=== PATIENT | male | born 1995 | race Caucasian/White ===

== ENCOUNTER 2016-06-17 18:21 | Emergency (ER) | payer BC ==
--- NOTE | 2016-06-17 18:57 | UC ---
Eye Complaint HPI - HPI Summary HPI Summary: Bilat eye irritation and foul drainage since this morning. No recent contact lens use, denies FB sensation or grinding/welding. No light sensitivity. Pt is concerned about pink eye. - History of Current Complaint Stated Complaint: EYE COMPLAINT Time Seen by Provider: 06/17/16 18:45 Hx Obtained From: Patient Onset/Duration: Gradual Onset, Lasting Hours Timing: Constant Severity Initially: Mild Severity Currently: Mild Aggravating Factor(s): Nothing Alleviating Factor(s): Nothing Associated Signs And Symptoms: Positive: Drainage (Purulent) - Allergies/Home Medications Allergies/Adverse Reactions: Allergies Allergy/AdvReac Type Severity Reaction Status Date / Time No Known Allergies Allergy Verified 06/17/16 19:03 PMH/Surg Hx/FS Hx/Imm Hx Previously Healthy: Yes - Family History Known Family History: Positive: Other - no FHX of glaucoma or macular degeneration Negative: Cardiac Disease, Blood Disorder - Social History Occupation: Student Lives: Alone Alcohol Use: Weekly Substance Use Type: None Review of Systems Constitutional: Negative Skin: Negative Eyes: Drainage, Eye Redness ENT: Negative Respiratory: Negative Cardiovascular: Negative Gastrointestinal: Negative Genitourinary: Negative Motor: Negative Neurovascular: Negative Musculoskeletal: Negative Neurological: Negative Psychological: Negative All Other Systems Reviewed And Are Negative: Yes Physical Exam Triage Information Reviewed: Yes Appearance: Well-Appearing, No Pain Distress, Well-Nourished Eyes: Positive: Conjunctiva Inflamed - bilat, Discharge - white/yellow at bilat inner puncta ENT: Positive: Normal ENT inspection, Hearing grossly normal, Pharynx normal, Other: - bilat cerumen impaction Dental Exam: Normal Neck exam: Normal Neck: Positive: Supple, Nontender, No Lymphadenopathy Respiratory Exam: Normal Respiratory: Positive: Chest non-tender, Lungs clear, Normal breath sounds, No respiratory distress, No accessory muscle use Cardiovascular Exam: Normal Cardiovascular: Positive: RRR, No Murmur Musculoskeletal Exam: Normal Neurological Exam: Normal Psychological Exam: Normal Skin Exam: Normal Eye Complaint Course/Dx - Differential Dx/Diagnosis Provider Diagnoses: bilat conjunctivitis. bilat cerumen impaction Discharge - Discharge Plan Condition: Stable Disposition: HOME Prescriptions: Ciprofloxacin 0.3% OPTH.JEFFREY* [Cipro 0.3% Opth*] 2 drop BOTH EYES QID #5 ml Patient Education Materials: Cerumen Impaction (ED), Conjunctivitis (ED)
[2016-06-17 19:02] VITALS: BP 133/64
== END 2016-06-17 19:24 | disposition home or self-care (01) ==
LOC: UCCORT 18:21
DX: H10.33 Unspecified acute conjunctivitis, bilateral (principal); H61.23 Impacted cerumen, bilateral
CPT/HCPCS: 99203; G0463

== ENCOUNTER 2018-03-18 13:57 | Emergency (ER) | payer BC ==
[2018-03-18 16:04] VITALS: BP 147/67
--- NOTE | 2018-03-18 16:25 | UC ---
General HPI - HPI Summary HPI Summary: PT STATES HE WAS STRUCK ABOVE HIS R EYE BY A SNOWBALL YESTERDAY AROUND 10AM CAUSING A CUT. HE DOESN'T THINK IT NEEDED STITCHES; HOWEVER, HIS FRIENDS THINKS IT MIGHT. HE HAS NO ASSOCIATED HEADACHE, EYE PAIN, DOUBLE OR BLURRY VISION. TETANUS IS UTD. - History of Current Complaint Chief Complaint: UCLaceration Stated Complaint: RIGHT EYE LACERATION Time Seen by Provider: 03/18/18 16:19 Hx Obtained From: Patient Pain Intensity: 0 Aggravating: NOTHING Alleviating: NOTHING Associated Signs & Symptoms: Negative: Headache, Nausea - Allergy/Home Medications Allergies/Adverse Reactions: Allergies Allergy/AdvReac Type Severity Reaction Status Date / Time No Known Allergies Allergy Verified 03/18/18 16:04 Home Medications: Home Medications NK [No Home Medications Reported] 03/18/18 [History Confirmed 03/18/18] PMH/Surg Hx/FS Hx/Imm Hx Previously Healthy: Yes - Surgical History Surgical History: None - Family History Known Family History: Positive: Other - no FHX of glaucoma or macular degeneration Negative: Cardiac Disease, Blood Disorder - Social History Occupation: Student Lives: Dormitory/Roommates Alcohol Use: Weekly Alcohol Amount: weekends Substance Use Type: None Smoking Status (MU): Never Smoked Tobacco - Immunization History Most Recent Tetanus Shot: up to date Hx Tetanus, Diphtheria Vaccination: Yes Vaccination Up to Date: Yes Review of Systems All Other Systems Reviewed And Are Negative: Yes Constitutional: Positive: Negative Skin: Positive: Negative Eyes: Positive: Negative ENT: Positive: Negative Respiratory: Positive: Negative Cardiovascular: Positive: Negative Gastrointestinal: Positive: Negative Genitourinary: Positive: Negative Motor: Positive: Negative Neurovascular: Positive: Negative Musculoskeletal: Positive: Negative Neurological: Positive: Negative Psychological: Positive: Negative Is Patient Immunocompromised?: No Physical Exam Triage Information Reviewed: Yes Appearance: Well-Appearing Vital Signs: Initial Vital Signs Temp 98.7 F 03/18/18 16:01 Pulse 78 03/18/18 16:01 Resp 16 03/18/18 16:01 BP 147/67 03/18/18 16:01 Pulse Ox 100 03/18/18 16:01 Vital Signs Reviewed: Yes Eyes: Positive: Other: - R periorbital bruising. No cranial or facial bone instability, step off or tenderness. PERRL, EOMI with no double or blurry vision. AC's clear. Globe non tender. ENT: Positive: Pharynx normal, TMs normal. Negative: Nasal congestion, Nasal drainage Neck: Positive: Supple, Nontender, No Lymphadenopathy, Other: - cspine non tender. Respiratory: Positive: Lungs clear, Normal breath sounds Cardiovascular: Positive: RRR Abdomen Description: Positive: Nontender, No Organomegaly, Soft Bowel Sounds: Positive: Present Musculoskeletal: Positive: ROM Intact Neurological: Positive: Other: - A&O x3. CN 2-12 grossly intact. Steady gait. Psychological: Positive: Age Appropriate Behavior Skin Exam: Normal, Other - 4mm laceration just below R brown that is closed. It did not open with cleaning and does not open with amximum traction(eye closed). Course/Dx - Course Course Of Treatment: R globe is unremarkable. Laceration is more than 24 hours old and is already healing plus did not open with cleaning or traction thus no additional tx required. - Differential Dx - Multi-Symptom Provider Diagnoses: R periorbitl contusion. Laceration below R brow-no closure Discharge - Sign-Out/Discharge Documenting (check all that apply): Patient Departure All imaging exams completed and their final reports reviewed: No Studies - Discharge Plan Condition: Stable Disposition: HOME Patient Education Materials: Black Eye (ED), Laceration Without Closure (ED) Referrals: No Primary Care Phys,NOPCP [Primary Care Provider] - Additional Instructions: FOLLOW UP PRIMARY CARE AT HOME NEEDED - Billing Disposition and Condition Condition: STABLE Disposition: Home
== END 2018-03-18 16:31 | disposition home or self-care (01) ==
LOC: UCCORT 13:57
DX: S01.81XA Laceration without foreign body of other part of head, initial encounter (principal); S00.11XA Contusion of right eyelid and periocular area, initial encounter; W22.8XXA Striking against or struck by other objects, initial encounter; Y92.9 Unspecified place or not applicable
CPT/HCPCS: 99212; G0463